=== PATIENT | male | born 2000 | race American Indian/Alaskan Native ===

== ENCOUNTER 2021-02-19 09:00 | Emergency (ER) | payer SELFPAY ==
[2021-02-19 10:14] VITALS: BP 105/73
--- NOTE | 2021-02-19 10:38 | Emergency Department Report ---
- General Chief complaint: Skin/Abscess/Foreign Body Stated complaint: BOILS TO BE LANCED Time Seen by Provider: 02/19/21 10:01 Source: patient Mode of arrival: Ambulatory Limitations: No Limitations - History of Present Illness Initial comments: Patient is a 21-year-old male presents emergency room with complaints of a boil to the gluteal region that began 4 years ago. He has not seen anyone for this. He states that occasionally he does see drainage. He denies any fever, nausea, vomiting, chills. Past medical history of childhood asthma. He denies any medication allergies. - Related Data Previous Rx's Medication Instructions Recorded Last Taken Type Sulfamethoxazole/Trimethoprim 1 each PO BID 7 Days #14 tablet 02/19/21 Unknown Rx [Bactrim DS TAB] Allergies Allergy/AdvReac Type Severity Reaction Status Date / Time No Known Allergies Allergy Unverified 02/19/21 09:11 Abscess Boil HPI - HPI Chief Complaint: Skin/Abscess/Foreign Body Stated Complaint: BOILS TO BE LANCED Time Seen by Provider: 02/19/21 10:01 Home Medications: Previous Rx's Medication Instructions Recorded Last Taken Type Sulfamethoxazole/Trimethoprim 1 each PO BID 7 Days #14 tablet 02/19/21 Unknown Rx [Bactrim DS TAB] Allergies/Adverse Reactions: Allergies Allergy/AdvReac Type Severity Reaction Status Date / Time No Known Allergies Allergy Unverified 02/19/21 09:11 ED Review of Systems ROS: Stated complaint: BOILS TO BE LANCED Other details as noted in HPI Comment: All other systems reviewed and negative ED Past Medical Hx - Past Medical History Hx Asthma: Yes - Surgical History Past Surgical History?: No - Social History Smoking Status: Never Smoker - Medications Home Medications: Home Medications Medication Instructions Recorded Confirmed Last Taken Type Sulfamethoxazole/Trimethoprim 1 each PO BID 7 Days #14 tablet 02/19/21 Unknown Rx [Bactrim DS TAB] ED Physical Exam - General Limitations: No Limitations General appearance: alert, in no apparent distress - Head Head exam: Present: atraumatic, normocephalic - Eye Eye exam: Present: normal appearance - ENT ENT exam: Present: mucous membranes moist - Neurological Exam Neurological exam: Present: alert, oriented X3 - Psychiatric Psychiatric exam: Present: normal affect, normal mood - Skin Skin exam: Present: warm, dry, other (paste up artist apprentice: HARRIS kirby, there is a 2 cm area of induration present to the gluteal cleft consistent with pilonidal cyst, no fluctuance, no drainage, no surrounding erythema) ED Course Vital Signs 02/19/21 02/19/21 09:09 09:10 Temperature 98.1 F 98.1 F Pulse Rate 76 Respiratory 20 Rate Blood Pressure 105/73 O2 Sat by Pulse 99 Oximetry ED Medical Decision Making - Medical Decision Making Patient is a 21-year-old male presents emergency room with complaints of a boil to the gluteal region that began 4 years ago. He has not seen anyone for this. He states that occasionally he does see drainage. He denies any fever, nausea, vomiting, chills. Past medical history of childhood asthma. He denies any medication allergies. Vitals are normal. On exam:paste up artist apprentice: HARRIS kirby, there is a 2 cm area of induration present to the gluteal cleft consistent with pilonidal cyst, no fluctuance, no drainage, no surrounding erythema. Examination appears consistent with pilonidal cyst, there is no drainable abscess at this time. Patient given prescription for medication. Discussed the importance of outpatient primary care and surgery follow-up. Discussed return precautions. Advised patient Please take medication as prescribed. Please do a sitz bath. Please do warm compresses. Follow-up with a general surgeon. Follow-up with a primary care doctor. Return to emergency room for any new or worsening symptoms. Critical care attestation.: If time is entered above; I have spent that time in minutes in the direct care of this critically ill patient, excluding procedure time. ED Disposition Clinical Impression: Pilonidal cyst Disposition: 01 HOME / SELF CARE / HOMELESS Is pt being admited?: No Does the pt Need Aspirin: No Condition: Stable Instructions: How to Take a Sitz Bath, Pilonidal Cyst Additional Instructions: Please take medication as prescribed. Please do a sitz bath. Please do warm compresses. Follow-up with a general surgeon. Follow-up with a primary care doctor. Return to emergency room for any new or worsening symptoms. Prescriptions: Sulfamethoxazole/Trimethoprim [Bactrim DS TAB] 1 each PO BID 7 Days #14 tablet Referrals: ELEAZAR OLIVARES DO [Staff Physician] - 2-3 Days (general surgeon ) HOA LARSON MD [Staff Physician] - 3-5 Days [facility] [Provider Group] - 3-5 Days Time of Disposition: 10:36 Print Language: BENGALI
== END 2021-02-19 11:16 | disposition home or self-care (01) ==
LOC: ED 09:00
DX: L05.91 Pilonidal cyst without abscess (principal); Z79.899 Other long term (current) drug therapy
CPT/HCPCS: 99282

== ENCOUNTER 2021-03-05 08:15 | Day surgery (SDC) | payer MEDICAID ==
[~2021-03-05 08:15] MED LIST: BUPIVACAINE/PF (0.25%) 2.5 MG/ML 30 ML VIAL INFILTRATI ONE; LIDOCAINE (1%) 10 MG/1 ML VIAL 20 ML MDV INFILTRATI ONE; SODIUM CHLORIDE 0.9% IRR 1,500 ML BOTTLE IR ONE
[2021-03-05] MEDS ORDERED: LIDOCAINE (1%) 10 MG/1 ML VIAL 20 ML MDV ONE (08:32)
[2021-03-05] MEDS ORDERED: BUPIVACAINE/PF (0.25%) 2.5 MG/ML 30 ML VIAL INFILTRATI ONE ×2 (08:33→10:33)
[2021-03-05] MEDS ORDERED: ceFAZolin/STERILE WATER 2 GM/20 ML SYRINGE IV NR (09:00)
[2021-03-05] MEDS ORDERED: MIDAZOLAM 2 MG/2 ML INJ IV ONE (09:42)
[2021-03-05] MEDS ORDERED: ONDANSETRON 4 MG/2 ML INJ IV PRN (09:47)
[2021-03-05] MEDS ORDERED: HYDROmorphone 1 MG/1 ML INJ IV PRN ×2 (09:47)
--- NOTE | 2021-03-05 09:48 | Anesthesia Consultation ---
Anesthesia Consult and Med Hx Date of service: 03/05/21 - Airway Anesthetic Teeth Evaluation: Chipped ROM Head & Neck: Adequate Mental/Hyoid Distance: Adequate Mallampati Class: Class II Intubation Access Assessment: Good - Pre-Operative Health Status ASA Pre-Surgery Classification: ASA2 Proposed Anesthetic Plan: General - Pulmonary Hx Smoking: Yes (MJ) Hx Asthma: Yes ( CHILD ONLY) Hx Sleep Apnea: No (YONATHAN PRE SCREEN LOW RISK) - Cardiovascular System Hx Hypertension: No - Central Nervous System Hx Psychiatric Problems: No - Hematic Hx Anemia: No - Other Systems Hx Substance Use: Yes (MARIJUANA 2 X PER WEEK) Hx Cancer: No Hx Obesity: No
--- NOTE | 2021-03-05 09:48 | Anesthesia Day of Surgery ---
Anesthesia Day of Surgery - Day of Surgery Patient Examined: Yes Patient H&P Reviewed: Yes Patient is NPO: Yes
[2021-03-05] MEDS ORDERED: propofoL 200 MG/20 ML VIAL IV ONE (09:58)
[2021-03-05] MEDS ORDERED: fentaNYL 100 MCG/2 ML INJ ONE (09:58)
[2021-03-05] MEDS ORDERED: ROCURONIUM 50 MG/5 ML INJ IV ONE (09:58)
[2021-03-05] MEDS ORDERED: LACTATED RINGERS 1,000 ML IV SCH (10:00)
[2021-03-05] MEDS ORDERED: SODIUM CHLORIDE 0.9% IRR 1,500 ML BOTTLE IR ONE (10:33)
[2021-03-05] MEDS ORDERED: LIDOCAINE (1%) 10 MG/1 ML VIAL 20 ML MDV INFILTRATI ONE (10:33)
[2021-03-05] MEDS ORDERED: HYDROmorphone 1 MG/1 ML INJ ONE (10:39)
[2021-03-05] MEDS ORDERED: GLYCOPYRROLATE 0.4 MG/2 ML INJ ONE ×2 (10:56→11:09)
[2021-03-05] MEDS ORDERED: NEOSTIGMINE 10MG/10 ML INJ MDV ONE (10:57)
[2021-03-05] MEDS ORDERED: KETOROLAC 30 MG/1 ML INJ ONE (11:00)
[2021-03-05] MEDS ORDERED: ONDANSETRON 4 MG/2 ML INJ ONE (11:00)
[2021-03-05] MEDS ORDERED: PHENYLEPHRINE/NS 1,000 MCG/10 ML SYRINGE (OR USE) IV ONE (11:00)
[2021-03-05] MEDS ORDERED: dexAMETHasone 20 MG/5 ML VIAL ONE (11:00)
--- NOTE | 2021-03-05 11:24 | Short Stay Summary ---
Short Stay Documentation Date of service: 03/05/21 - History Principal diagnosis: pilonidal cyst and sinuses H&P: obtained from office - Allergies and Medications Current Medications: Allergies No Known Allergies Allergy (Verified 02/25/21 11:04) Home Medications Medication Instructions Recorded Confirmed Last Taken Type No Known Home Medications [No 02/25/21 02/25/21 Unknown History Reported Home Medications] Active Medications Cefazolin Sodium (Cefazolin/Sterile Water 2 Gm/20 Ml Syringe) 2 gm IV PREOP NR Stop: 03/05/21 20:00 Hydromorphone HCl (Hydromorphone 1 Mg/1 Ml Inj) 0.25 mg IV Q10MIN PRN PRN Reason: Pain, Moderate (4-6) Stop: 03/05/21 23:00 Hydromorphone HCl (Hydromorphone 1 Mg/1 Ml Inj) 0.5 mg IV Q10MIN PRN PRN Reason: Pain , Severe (7-10) Stop: 03/05/21 23:00 Lactated Ringer's (Lactated Ringers) 1,000 mls @ 100 mls/hr IV DIRECT ALICIA Last Admin: 03/05/21 09:45 Dose: 100 mls/hr Documented by: Ondansetron HCl (Ondansetron 4 Mg/2 Ml Inj) 4 mg IV ONCE PRN PRN Reason: Nausea And Vomiting Stop: 03/05/21 16:00 - Brief post op/procedure progress note Date of procedure: 03/05/21 Pre-op diagnosis: pilonidal cyst and sinuses Post-op diagnosis: same Procedure: excision of pilonidal cyst and sinuses Anesthesia: GETA, local Findings: Multiple pilonidal sinuses with chronic inflammation - specimen marked with short stitch superior margin and long stitch as lateral right margin. Surgeon: ELEAZAR OLIVARES Estimated blood loss: minimal Pathology: list (PILONIDAL CYST AND SINUSES) Specimen disposition: to lab Condition: stable - Hospital course Hospital course: Pt observed in PACU and discharged to home in stable condition - Disposition Condition at discharge: Good Disposition: 01 HOME / SELF CARE / HOMELESS Short Stay Discharge Plan Activity: no restrictions Diet: regular Wound: per your surgeon's advice (see printed instructions) Follow up with: PRIMARY CARE, [Primary Care Provider] - 7 Days ELEAZAR OLIVARES DO [Staff Physician] - 7 Days Prescriptions: Ibuprofen [Motrin 800 MG tab] 800 mg PO Q8HR PRN #30 tablet PRN Reason: Pain, Moderate (4-6) HYDROcodone/APAP 5-325 [[place] 5/325] 1 each PO Q4HR PRN #30 tablet PRN Reason: Pain , Severe (7-10)
[2021-03-05] MEDS ORDERED: MEPERIDINE 25 MG/1 ML INJ IV PRN (12:23)
[2021-03-05 13:06] VITALS: BP 119/57
--- NOTE | 2021-03-05 16:36 | Post Anesthesia Evaluation ---
- Post Anesthesia Evaluation Patient Participated: Yes Airway Patent: Yes Stable Respiratory Function: Yes Nausea/Vomiting: No Temp > 96.8F: Yes Pain Manageable: Yes Adequeate Hydration: Yes Anesthesia Complications: No Block Receding Appropriately: Not Applicable Patient on Ventilator: No
--- NOTE | 2021-03-09 14:43 | Operative Report ---
Operative Report Operative Report: Date of procedure: 03/05/21 11:21AM Pre-op diagnosis: pilonidal cyst and sinuses Post-op diagnosis: same Procedure: excision of pilonidal cyst and sinuses Anesthesia: GETA, local Findings: Multiple pilonidal sinuses with chronic inflammation - specimen marked with short stitch superior margin and long stitch as lateral right margin. Surgeon: ELEAZAR OLIVARES Estimated blood loss: minimal Pathology: list (PILONIDAL CYST AND SINUSES) Specimen disposition: to lab Condition: stable Hospital course: Pt observed in PACU and discharged to home in stable condition Condition at discharge: Good Disposition: 01 HOME / SELF CARE / HOMELESS HPI and indication: Patient is a 21-year-old male who was sent to the surgery clinic for evaluation of cyst of tailbone area with draining sinuses. Upon evaluation he was found to have a pilonidal cyst with multiple chronic sinus tracts of the skin. Some of the sinus tracts were in the midline and there was chronic scar tissue and a healed sinus tract in the sacral area to the right of the midline. It was recommended that it the patient undergo excision of pilonidal cyst and associated sinus tracts. All risks, benefits, alternatives to surgery were discussed with the patient questions answered. Consent obtained. Seizure detail: Patient was identified in the preoperative area, taken back to the operating room. Anesthesia was induced on the stretcher and then he was transferred to the operating room table in prone position. All bony prominences were padded appropriately. The patient was placed in jackknife position and the buttocks taped apart. The sacrum and gluteal region was prepped and draped in the usual sterile fashion a timeout performed. The skin incision was marked. An elliptical incision was made in order to incorporate all of the skin involved with the chronic sinus tracts. I started my incision to the right of the midline in the sacral area and extended this down towards the midline in the intergluteal cleft. The subcutaneous tissue was dissected using electrocautery and I continued the dissection to the level of the presacral fascia with great care to avoid disturbing this layer. A wide local excision was performed and all of the chronic inflammatory tissue and disease skin was excised satisfactorily. This was passed off the table as a specimen after being marked. A short stitch marked superior margin and a long stitch marked the lateral right margin. The wound was then irrigated and hemostasis very carefully ensured. Once hemostasis was ensured the wound was closed in layered fashion. The deep layer was closed using interrupted 2-0 Vicryl sutures. The deep dermal layer was approximated using interrupted 3-0 Vicryl sutures. Skin was approximated using vertical mattress 2-0 Prolene sutures. There was no tension on the closure. 2 Telfa marine were placed in between the sutures in the inferior part of the incision to allow for drainage. The wound was covered with 4 x 4 gauze ABD pads and Medipore tape. At the end of the case, all sponge, instrument, sharp counts were correct x2. The patient was returned to the stretcher in supine position, extubated, taken to PACU in stable condition.
== END 2021-03-05 13:15 | disposition home or self-care (01) ==
LOC: OR 08:15
PROVIDERS: ATTEND Surgery
DX: L05.91 Pilonidal cyst without abscess (principal); L05.92 Pilonidal sinus without abscess; J45.909 Unspecified asthma, uncomplicated; Z79.899 Other long term (current) drug therapy; Z98.890 Other specified postprocedural states; Z20.822 Contact with and (suspected) exposure to COVID-19
CPT/HCPCS: 11770; 88304; J0690; J1100; J1170; J1885; J2175; J2250; J2370; J2405; J2704; J2710; J3010; J7120; U0003